=== PATIENT | female | born 1995 | race African-American/Black ===

== ENCOUNTER 2023-01-11 08:25 | Outpatient (CLI) | payer OTHER, SELFPAY ==
[2023-01-11 08:45] LABS: Basophils Absolute Auto 0.1 K/mm3 (0.0-0.1); Basophils Percent Auto 1.1 % (0.2-1.2); Eosinophils Absolute Auto 0.6 K/mm3 (0-0.3); Eosinophils Percent Auto 8.3 % (0-4.4); Hematocrit 42.1 % (37.0-47.0); Immature Granulocyte Absolute 0.02 K/mm3 (0.00-0.031); Immature Granulocyte Percent A 0.3 % (0-0.5); Lymphocytes Absolute Auto 2.61 K/mm3 (0.9-3.2); Lymphocytes Percent Auto 36.5 % (18.3-44.2); Mean Corpuscular HGB Conc 33.3 g/dl (32-36); Mean Corpuscular Hemoglobin 32.1 pg (26-34); Mean Corpuscular Volume 96.6 fl (80-100); Monocytes Absolute Auto 0.5 K/mm3 (0.1-0.6); Monocytes Percent Auto 6.7 % (2.6-8.5); Neutrophils Absolute Auto 3.4 K/mm3 (1.3-6.7); Neutrophils Percent Auto 47.1 % (45.5-73.1); Platelet Count Result 369 k/mm3 (150-375); Red Blood Count 4.36 M/mm3 (4.2-5.4); Red Cell Distribution Width 12.3 % (11.5-14.5); White Blood Count 7.2 K/mm3 (4.5-10.0)
[2023-01-11 09:44] LABS: Alanine Aminotransferase 24 U/L (6-35); Albumin Level 4.5 g/dL (3.5-5.1); Alkaline Phosphatase 113 U/L (38-126); Anion Gap 5 mmol/L (8-16); Aspartate Amino Transferase 34 U/L (14-36); Bilirubin,Total 0.4 mg/dL (0.2-1.3); Blood Urea Nitrogen 19 mg/dL (7-17); Calcium 9.2 mg/dL (8.4-10.2); Carbon Dioxide 29 mmol/L (22-30); Chloride 106 mmol/L (98-107); Estimated Glomerular Filt Rate > 60; Glucose 93 mg/dL (65-110); Potassium 4.2 mmol/L (3.4-5.0); Sodium 140 mmol/L (137-145)
[2023-01-11 09:58] LABS: Iron 46 ug/dL (37-170)
[2023-01-11 10:08] LABS: Percent Iron Saturation 11 % (20-50)
[2023-01-11 10:17] LABS: Free T4 Free Thyroxine 0.88 ng/mL (0.78-2.19)
== END 2023-01-11 08:26 | disposition home or self-care (01) ==
PROVIDERS: PCP Family Medicine; Visit Provider Family Medicine
DX: D50.9 Iron deficiency anemia, unspecified (principal); M54.2 Cervicalgia
CPT/HCPCS: 36415; 80053; 82728; 83540; 83550; 84439; 84443; 85025

== ENCOUNTER 2025-02-19 13:35 | Outpatient (CLI) | payer OTHER, SELFPAY ==
--- OUTSIDE RECORDS SUMMARY | 2025-02-19 13:37 | XMS_ITS | Encounter Summary ---
Author Organization [facility] Address [address] [place] [address] Phone Care Team Providers Care Operating Room Nurse Name Role Phone Cl Edmond MD Unavailable Hank Vallejo APRN REGISTERED NURSE MATERNAL CHILD Primary Care Provid er Reason for Referral * Consult, Test & Initiate Treatment (Routine) - Open Specialty Diagnoses / Procedures Referred By Loida vaca Referred To Contact Diagnoses Attention deficit Anxiety Hank Vallejo APRN, REGISTERED NURSE MATERNAL CHILD [address] [address] Phone: tel: fax: Referral ID Status Reason Start Date Expiration Date Visits Re quested Visits Authorized [id number] Open 02/18/2025 1 1 Scheduling Instructions Sindy is being referred to or other specialist in patient's insurance network for ADHD testing. See below for Sindy's current medications, allergies and problem list. CURRENT MEDS: Current Outpatient Medications: buPROPion (WELLBUTRIN) 150 MG XL tablet, Take 1 Tablet by mouth every morning., Disp: 90 Tablet, Rfl: 0 medroxyPROGESTERone (DEPO-PROVERA) 150 MG/ML Suspension, DIRECTED, Disp: , Rfl: Vit-Fe Fumarate-FA ( VITAMIN PO), Take 1 Tablet by mouth daily. (Patient not taking: Reported on 02/18/2025), Disp: , Rfl: valACYclovir (VALTREX) 1 GM Tablet, , Disp: , Rfl: No current facility-administered medications for this visit. ALLERGIES: -- Pollen Extract -- Itching, Runny Nose and Shortness of Breath PROBLEM LIST: Patient Active Problem List: Visit for annual health examination (Adult) Vitamin D deficiency Anxiety and depression * Consult, Test & Initiate Treatment (Routine) - Denied Specialty Diagnoses / Procedures Referred By Contcameron t Referred To Contact Behavioral Health Diagnoses Attention deficit Hank Vallejo APRN, CNP [address] [address] Phone: tel: fax: [facility] [address] [place] [address] Phone: tel: fax: Referral ID Status Reason Start Date Expiration Date Visits Re quested Visits Authorized [id number] Denied 02/18/2025 1 1 Scheduling Instructions Sindy is being referred for ADHD testing. Please contact patient for scheduling questions or concerns. Reason for Visit * Reason Comments Mental Health Problem Encounter Details Date Type Department Care Team ([facility] st Contact Info) Description 02/18/2025 7:45 AM CDT Office Visit [facility] - Family [facility] [address] [place] [address] Hank Vallejo APRN, JODI [address] [address] Attention deficit (Primary Dx); Anxiety; Vitamin D deficiency; Weight gain; Elevated TSH Discharge Disposition: Discharged to home or Selfcare Social History Tobacco Use Types Packs/Day Years Used Date Smoking Tobacco: Never Smokeless Tobacco: Never Alcohol Use Standard Drinks/Week Comments Yes 6 (1 standard drink = 0.6 oz pur e alcohol) [facility] Utilities Answer Date Recorded In the past 12 months has e electric, gas, oil, or water company threatened to shut off services in your home? No 04/10/2024 Social Connection and Isolation Panel [NHANES] A nswer Date Recorded In a typical week, how many times do you talk on the phone with family, friends, or neighbors? Twice a week 04/10/2024 How often do you get together with friends or re latives? Once a week 04/10/2024 How often do you attend episcopal or christian serv ices? Never 04/10/2024 Do you belong to any clubs o r organizations such as episcopal groups, unions, fraternal or athletic groups, or school groups? No 04/10/2024 How often do you attend meet ings of the clubs or organizations you belong to? Never 04/10/2024 Are you , , di vorced, , never , or living with a partner? Never 04/10/2024 AUDIT-C Answer Date Recorded Q1: How often do you have a drink containing alc ohol? 2-3 times a week 04/10/2024 Q2: How many drinks containi ng alcohol do you have on a typical day when you are drinking? 1 or 2 04/10/2024 Q3: How often do you have si x or more drinks on one occasion? Monthly 04/10/2024 Overall Financial Resource Strain (CARDIA) Answe r Date Recorded How hard is it for you to pa y for the very basics like food, housing, medical care, and heating? Not very hard 04/10/2024 PHQ-2 Answer Date Recorded Total Score - Questions 1-9 20 01/22 [facility] [place] [facility] Occupat ional Health - Occupational Stress Questionnaire Answer Date Recorded Do you feel stress - tense, restless, nervous, or anxious, or unable to sleep at night because your mind is troubled all the time - these days? Very much 04/10/2024 Exercise Vital Sign Answer Date Recorde d On average, how many days pe r week do you engage in moderate to strenuous exercise (like a brisk walk)? 7 days 04/10/2024 On average, how many minutes do you engage in exercise at this level? 60 min 04/10/2024 Hunger Vital Sign Answer Date Recorded Within the past 12 months, y ou worried that your food would run out before you got the money to buy more. Never true 04/10/20 24 Within the past 12 months, t he food you bought just didn't last and you didn't have money to get more. Never true 04/10/2024 PRAPARE - Transportation Answer Date Re corded In the past 12 months, has l ack of transportation kept you from medical appointments or from getting medications? No 03/23 In the past 12 months, has l ack of transportation kept you from meetings, work, or from getting things needed for daily living? No 04/10/2024 Housing Stability Vital Sign Answer Hong e Recorded In the last 12 months, was t here a time when you were not able to pay the mortgage or rent on time? No 04/10/2024 In the past 12 months, how m any times have you moved where you were living? 0 04/10/2024 At any time in the past 12 m [facility], were you homeless or living in a penitentiary (including now)? No 04/10/2024 Education Answer Date Recorded What is the highest level of school you have completed or the highest degree you have received? Some college, no degree 01/09/2023 Sexually Active Control Partners Comments Yes Comments No Sex and Gender Information Value Date Recorded Sex Assigned at Female 02/04/2024 2:10 PM CDT Legal Sex Female 7:58 PM CDT Gender Identity Female 02/04/2024 2:10 PM CDT Sexual Orientation Straight 02/04/2024 2: 10 PM CDT documented as of this encounter Last Filed Vital Signs Vital Sign Reading Time Taken Comments Blood Pressure 110/82 02/18/2025 7:46 AM CDT Pulse 103 02/18/2025 7:46 AM CDT Temperature 36.3 C (97.3 F) 02/18/2025 7:46 AM CDT Respiratory Rate 16 02/18/2025 7:46 AM CDT Oxygen Saturation 98% 02/18/2025 7:46 AM CDT Inhaled Oxygen Concentration - - Weight 88.9 kg (196 lb) 02/18/2025 7:46 AM CDT Height 165.1 cm (5' 5) 02/18/2025 7:46 AM CDT Body Mass Index 32.62 02/18/2025 7:46 AM CDT documented in this encounter Functional Status * Question Answer Date of Assessment Author Little interest or pleasure in doing things Nearly every day 02/18/2025 7:54 AM CDT Dottie Marcus MA Feeling down, depressed, or hopeless More than half the days 02/18/2025 7:54 AM CDT Dottie Marcus MA * Over the past 2 weeks, how often have you been bothered by any of the following problems? Question Answer Date of Assessment Author Patient Health Questionnaire -2 Score 5 02/18/2025 7:54 AM CDT Dottie Marcus MA documented as of this encounter Progress Notes * Dottie Marcus MA - 02/18/2025 7:45 AM CDT Sindy Carcamo Ofeliajose, 29 y.o., female is here for Mental Health Problem Medication Refills: Patient reports/denies need for medication refills. Orders Pended: no Requested Prescriptions No prescriptions requested or ordered in this encounter Home Medications Medication Sig Start Date End Date Taking? Authorizing Provider escitalopram (LEXAPRO) 10 MG Tablet Take 1 Tablet by mouth daily. Patient not taking: Reported on 02/18/2025 05/15/24 Hank Vallejo APRN, JODI medroxyPROGESTERone (DEPO-PROVERA) 150 MG/ML Suspension DIRECTED 01/03/23 Yes Margarita Knapp MD Vit-Fe Fumarate-FA ( VITAMIN PO) Take 1 Tablet by mouth daily. Patient not taking: Reported on 02/18/2025 ProviderMargarita MD valACYclovir (VALTREX) 1 GM Tablet 04/03/24 Yes Margarita Knapp MD There are no discontinued medications. I have reviewed the home medication list with the patient and have reconciled discrepancies. The list is accurate to the best of my knowledge. Smoking Status: Social History Tobacco Use Smoking status: Never Smokeless tobacco: Never Vaping Use Vaping status: Every Day Substances: Nicotine, Flavoring Devices: Disposable (every 2-3 weeks) Substance Use Topics Alcohol use: Yes Alcohol/week: 3.6 oz Types: 6 Glasses of wine per week Drug use: Not Currently Smoking Cessation Counseling Given: yes Health Care Maintenance: Health Maintenance Due Topic Date Due Human Papillomavirus (HPV) Immunization (3 - 3-dose series) 04/20/2010 Orders Pended: no The following BPA's have been addressed with the patient today: Depression ABUSE and ANXIETY PHQ-2 Little interest or pleasure in doing things: Nearly every day Feeling down, depressed, or hopeless: More than half the days Initial Score - If the score is 2 or higher, please proceed with the additional evaluation.: 5 PHQ-9 3. Trouble falling asleep or staying asleep or sleeping too much?: 3 - Nearly every day 4. Feeling tired or having little energy?: 3 - Nearly every day 5. Poor appetite or overeating?: 3 - Nearly every day 6. Feeling bad about yourself or that you are a failure or have let yourself or your family down?: 0 - Not at all 7. Trouble concentrating on things, such as reading the newspaper or watching television?: 3 - Nearly every day 8. Moving or speaking so slowly that other people could have noticed. Or the opposite - being so fidgety or restless that you have been moving around a lot more than usual?: 3 - Nearly every day 9. Thoughts that you would be better off or of hurting yourself in some way?: 0 - Not at all 10. If you checked off any problems, how difficult have these problems made it for you to do your work, take care of things at home or get along with other people?: Extremely difficult Total Score - Questions 1-9: 20 DEWAYNE Over the last 2 weeks, how often have you been bothered by the following problems? Feeling nervous, anxious, or on edge: Nearly every day Not being able to stop or control worrying: Nearly every day Worrying too much about different things: Nearly every day Trouble relaxing: Nearly every day Being so restless that it's hard to sit still: Nearly every day Becoming easily annoyed or irritable : Nearly every day Feeling afraid as if something awful might happen: Several days DEWAYNE - 7 Scale Total Score:: 19 If you checked off any problems, how difficult have these made it for you to do your work/school, take care of things at home, or get along with other people?: Extremely difficult * Hank Vallejo APRN, JODI - 02/18/2025 7:45 AM CDT [facility] [address] [facility] [address] Dept: [phone] Dept Loc: [phone] Loc Patient: Sindy Haney : 1995 Sex: female Subjective Subjective: History of Present Illness The patient is a 29-year-old female who presents today for follow-up for anxiety and depression andwith concerns of ADHD. Her anxiety score is 19 and PHQ is 21. She discontinued Lexapro in June 2024 due to perceived ineffectiveness. She reports experiencingracing thoughts, loss of control, concentration difficulties, insomnia, fatigue, hypersomnia, and persistent tiredness upon awakening. She describes her sleep as stress-induced, often waking up in a state of panic. She has been under significant stress for the past 2 weeks, attempting to balance her home life with her academic commitments. She is a single mother of 2 children and is currently enrolled in 3 online classes. She suspects she may have ADHD, a condition she believes has been present throughout her life but has never been formally diagnosed. She has taken an online test for ADHD, which suggested a positive result. She reports difficulty in completing projects once the challenging aspects are completed, organizing tasks, remembering appointments or obligations, initiating tasks that require significant thought, and maintaining attention during boring or repetitive work. She also reports fidgeting, restlessness, excessive activity, making careless mistakes during boring or difficult projects, difficulty concentrating on conversations, misplacing items, being easily distracted by noise or activity, leaving her seat during meetings, talking excessively in social situations, finishing others' sentences, difficulty waiting her turn, and interrupting others. Despite these challenges, she performed well academically during her school years. She has been experiencing swelling in her hands and ankles and has requested a cortisol level checkfrom her material damage adjuster. She has gained weight, currently weighing 196.4 pounds, up from her previousweight of 150 pounds during her . Her eating habits are inconsistent, with periods of overeating followed by periods of not eating at all. She has attempted to manage her weight through exercise and a fruit and water diet but has not seen any significant results. She occasionally craves salt and consumes pretzels or heavy salt to satisfy this craving. SOCIAL HISTORY She is a single mother of 2 children and is currently enrolled in 3 online classes. FAMILY HISTORY Her mother takes levothyroxine for thyroid issues. Past Medical History Positives Diagnosis Date Low iron stores Current Outpatient Medications on File Prior to Visit Medication Sig Dispense Refill medroxyPROGESTERone (DEPO-PROVERA) 150 MG/ML Suspension DIRECTED Vit-Fe Fumarate-FA ( VITAMIN PO) Take 1 Tablet by mouth daily. (Patient not taking: Reported on 02/18/2025) valACYclovir (VALTREX) 1 GM Tablet No current facility-administered medications on file prior to visit. Allergies Allergen Reactions Pollen Extract Itching, Runny Nose and Shortness of Breath Review of Systems Review of Systems Constitutional: Negative for activity change, appetite change, chills, fatigue and fever. Respiratory: Negative for cough, chest tightness, shortness of breath and wheezing. Cardiovascular: Negative for chest pain, palpitations and leg swelling. Gastrointestinal: Negative for constipation, diarrhea, nausea and vomiting. Musculoskeletal: Negative for arthralgias, back pain, joint swelling and myalgias. Skin: Negative for rash and wound. Neurological: Negative for dizziness, light-headedness and headaches. Psychiatric/Behavioral: Positive for agitation and decreased concentration. Negative for behavioralproblems, confusion, dysphoric mood, hallucinations, self-injury, sleep disturbance and suicidal ideas. The patient is nervous/anxious. The patient is not hyperactive. Objective Objective: Visit Vitals BP 110/82 (BP Location: Right Arm, BP Position: Sitting, BP Cuff Size: Regular) Pulse 103 Temp 97.3 ??F (36.3 ??C) (Temporal) Resp 16 Physical Exam Physical Exam Vitals and nursing note reviewed. Constitutional: General: She is not in acute distress. Appearance: Normal appearance. She is well-developed. She is not diaphoretic. HENT: Head: Normocephalic and atraumatic. Right Ear: External ear normal. Left Ear: External ear normal. Nose: Nose normal. Mouth/Throat: Mouth: Mucous membranes are moist. Pharynx: Oropharynx is clear. Eyes: Pupils: Pupils are equal, round, and reactive to light. Neck: Vascular: No carotid bruit. Trachea: No tracheal deviation. Cardiovascular: Rate and Rhythm: Normal rate and regular rhythm. Pulses: Normal pulses. Heart sounds: Normal heart sounds. No murmur heard. No friction rub. No gallop. Pulmonary: Effort: Pulmonary effort is normal. No respiratory distress. Breath sounds: Normal breath sounds. No stridor. No wheezing, rhonchi or rales. Musculoskeletal: General: No tenderness. Normal range of motion. Cervical back: Normal range of motion and neck supple. No tenderness. Lymphadenopathy: Cervical: No cervical adenopathy. Skin: General: Skin is dry. Capillary Refill: Capillary refill takes less than 2 seconds. Neurological: General: No focal deficit present. Mental Status: She is alert and oriented to person, place, and time. Mental status is at baseline. Psychiatric: Attention and Perception: Attention and perception normal. Mood and Affect: Affect normal. Mood is anxious. Speech: Speech normal. Behavior: Behavior normal. Behavior is cooperative. Thought Content: Thought content normal. Cognition and Memory: Cognition and memory normal. Judgment: Judgment normal. PHQ-2 Little interest or pleasure in doing things: Nearly every day Feeling down, depressed, or hopeless: More than half the days Initial Score - If the score is 2 or higher, please proceed with the additional evaluation.: 5 PHQ-9 3. Trouble falling asleep or staying asleep or sleeping too much?: 3 - Nearly every day 4. Feeling tired or having little energy?: 3 - Nearly every day 5. Poor appetite or overeating?: 3 - Nearly every day 6. Feeling bad about yourself or that you are a failure or have let yourself or your family down?: 0 - Not at all 7. Trouble concentrating on things, such as reading the newspaper or watching television?: 3 - Nearly every day 8. Moving or speaking so slowly that other people could have noticed. Or the opposite - being so fidgety or restless that you have been moving around a lot more than usual?: 3 - Nearly every day 9. Thoughts that you would be better off or of hurting yourself in some way?: 0 - Not at all 10. If you checked off any problems, how difficult have these problems made it for you to do your work, take care of things at home or get along with other people?: Extremely difficult Total Score - Questions 1-9: 20 DEWAYNE Over the last 2 weeks, how often have you been bothered by the following problems? Feeling nervous, anxious, or on edge: Nearly every day Not being able to stop or control worrying: Nearly every day Worrying too much about different things: Nearly every day Trouble relaxing: Nearly every day Being so restless that it's hard to sit still: Nearly every day Becoming easily annoyed or irritable : Nearly every day Feeling afraid as if something awful might happen: Several days DEWAYNE - 7 Scale Total Score:: 19 If you checked off any problems, how difficult have these made it for you to do your work/school, take care of things at home, or get along with other people?: Extremely difficult Medical Decision Making: Assessment & Plan Diagnoses and all orders for this visit: Attention deficit - buPROPion (WELLBUTRIN) 150 MG XL tablet; Take 1 Tablet by mouth every morning. - [facility]: PSYCHOLOGY- THERAPY/CBT; Future Anxiety - buPROPion (WELLBUTRIN) 150 MG XL tablet; Take 1 Tablet by mouth every morning. Vitamin D deficiency - VITAMIN D, 25 HYDROXY TOTAL; Future Weight gain - CMP (COMPREHENSIVE METABOLIC PANEL); Future - COMPLETE BLOOD COUNT (CBC) WITH DIFF; Future - THYROID STIMULATING HORMONE (TSH); Future - VITAMIN B12; Future - IRON,TRANSFERN,CALC.TIBC,%SAT; Future Assessment & Plan 1. Anxiety. Her anxiety score is 19. She reports feeling very stressed and overwhelmed due to her current life circumstances, including being a single mom and managing schoolwork. She stopped taking Lexapro in June 2024 as it was not effective. Wellbutrin will be initiated to help manage her anxiety while awaiting further testing for ADHD. Potential side effects, including fatigue, nausea, and a possible unusual taste in the mouth, were discussed. If she experiences worsening depression or suicidal ideation, she should notify the clinic immediately. 2. Depression. Her PHQ score is 21. Although she reports less depression compared to anxiety, there is still a need to monitor her mental health closely. The potential for depression to increase due to untreated ADHD was discussed. Wellbutrin will also help manage depressive symptoms. 3. Suspected ADHD. She reports symptoms consistent with ADHD, including difficulty concentrating, organizing tasks, and remembering appointments. A referral to a psychologist for comprehensive ADHD testing will be made. Wellbutrin will be initiated to help manage symptoms of ADHD, including attention issues and restlessness, while awaiting further testing. 4. Weight gain. She has gained weight, currently weighing 196.4 pounds, up from her previous weight of 150 pounds during her . Her eating habits are inconsistent, with periods of overeating followed by periods of not eating at all. She has attempted to manage her weight through exercise and a fruit and water diet but has not seen any significant results. She occasionally craves salt and consumes pretzels or heavy salt to satisfy this craving. Laboratory tests will be ordered to assess her overall health status, including a recheck of her vitamin D levels. Follow up for medication discussion after ADHD testing Time spent in open communication and establishing rapport with the patient was essential for effectively conveying assessment and plan, optimizing health outcomes, and fostering a trusting long-term provider-patient relationship. documented in this encounter Miscellaneous Notes * Addendum Note - Hank Vallejo APRN, CNP - 02/18/2025 7:45 AM CDTAddended by: HANK VALLEJO on: 02/18/2025 04:22 PM Modules accepted: Orders * Addendum Note - Hank Vallejo APRN, CNP - 02/18/2025 7:45 AM CDTAddended by: HANK VALLEJO on: 02/18/2025 05:04 PM Modules accepted: Orders documented in this encounter Plan of Treatment Scheduled Orders Name Type Priority Associated Diagnoses Orde r Schedule THYROXINE (T4) FREE Lab Routine Elevated TSH Expected: 02/18/2025, Expires: 08/17/2025 TRIIODOTHYRININE (T3) FREE Lab Routine Elevated TSH Expected: 02/18/2025, Expires: 03/24/2025 Scheduled Referrals Name Type Priority Associated Diagnoses Order Schedule [facility]: PSYCHOLOGY- THERAPY/CBT Outpatient Referral Routine Attention deficit Expected: 02/18/2025, Expires: 05/21/2025 EXTERNAL PSYCHIATRY REFERRAL Outpatient Referral Routine Attention deficit Anxiety Expected: 02/18/2025, Expires: 02/18/2026 documented as of this encounter Results * IRON,TRANSFERN,CALC.TIBC,%SAT (02/18/2025 8:21 AM CDT) IRON 89 25 - 156 mcg/dL 02/18/2025 1:11 PM CDT [facility] TRANSFERRIN 267 180 - 382 mg/dL 02/18/2025 1:11 PM CDT [facility] TIBC, CALCULATED 334 265 - 497 mcg/dL 02/18/2025 1:11 PM CDT [facility] % SATURATION * 27 15 - 62 % 02/18/2025 1:11 PM CDT [facility] Blood Venipuncture / Unknown 02/18/2025 8:21 AM CDT 02/18/2025 8:21 AM CDT us Hank Vallejo ROUNDSMAN, REGISTERED NURSE MATERNAL CHILD CHEMISTRY ORDERABLES Final Result [facility] [address] [place] [address] * VITAMIN D, 25 HYDROXY TOTAL (02/18/2025 8:21 AM CDT) VITAMIN D, 25 HYDROX 13.1 ng/mL 02/18/2025 1:34 PM CDT [facility] Blood Venipuncture / Unknown 02/18/2025 8:21 AM CDT 02/18/2025 8:21 AM CDT Narrative [facility] - 02/18/2025 1:34 PM CDT Published reference ranges for Vitamin D vary depending on time and place and method of testing, and on patient's age, sex, ethnicity and levels of other measured analytes such as parathormone, calcium and phosphorus. The result should be evaluated in conjunction with clinical findings and suspicions. [place] [facility] [employer] [facility] Clinical Practice Guidelines: Status Vitamin D levels (ng/mL) Deficient <=20 At risk of inadequacy 21-29 Sufficient 30-100 Centers of Disease Control and Prevention Guidelines: Status Vitamin D levels (ng/mL) Deficient <13 At risk of inadequacy 13-19 Sufficient 20-50 Possibly harmful >50 References: [place] [employer], 2010 Dietary reference intakes for calcium and vitamin D. [place]: The National Academies Press. Gordo M, Mitzy N, Barrett BAEZ, et al., Evaluation, treatment, and prevention of Vitamin D deficiency: an Endocrinology Clinical Practice Guideline. JCEM 2011 96: 7 2402-6628. Karla A, Saravanan C, Ifrah D, et al., Vitamin D Status: [place], [id number], [facility] data brief, no. 59, MD Jt: National Center for Health Statistics. 2011. us Hank Vallejo APRN, REGISTERED NURSE MATERNAL CHILD CHEMISTRY ORDERABLES Final Result [facility] [address] [place] [address] * VITAMIN B12 (02/18/2025 8:21 AM CDT) VITAMIN B12 762 213 - 816 pg/mL 02/18/2025 1:34 PM CDT [facility] Blood Venipuncture / Unknown 02/18/2025 8:21 AM CDT 02/18/2025 8:21 AM CDT us Hank Vallejo ROUNDSMAN, REGISTERED NURSE MATERNAL CHILD CHEMISTRY ORDERABLES Final Result Performing Organization Address City/[facility]/ZIP Co de Phone Number [facility] [place] [address] * (ABNORMAL) THYROID STIMULATING HORMONE (TSH) (02/18/2025 8:21 AM CDT) Pathologist [facility] TSH 11.475(H) 0.300 - 5.000 mIU/L 02/18/2025 1:36 PM CDT [facility] Blood Venipuncture / Unknown 02/18/2025 8:21 AM CDT 02/18/2025 8:21 AM CDT us Hank Vallejo ROUNDSMAN, JODI CHEMISTRY ORDERABLES Final Result [facility] [place] [address] * (ABNORMAL) CMP (COMPREHENSIVE METABOLIC PANEL) (02/18/2025 8:21 AM CDT) [facility] SODIUM 139 136 - 145 mmol/L 02/18/2025 1:11 PM CDT [facility] POTASSIUM 4.1 3.5 - 5.1 mmol/L 02/18/2025 1:11 PM CDT [facility] CHLORIDE 108(H) 98 - 107 mmol/L 02/18/2025 1:11 PM CDT [facility] CO2, VENOUS 25 22 - 30 mmol/L 02/18/2025 1:11 PM CDT [facility] ANION GAP 10.1 <18.0 mmol/L 02/18/2025 1:11 PM CDT [facility] GLUCOSE 88 70 - 99 mg/dL 02/18/2025 1:11 PM CDT [facility] BUN 12 5 - 18 mg/dL 02/18/2025 1:11 PM CDT [facility] CREATININE, BLOOD 1.32(H) 0.60 - 1.00 mg/dL 02/18/2025 1:11 PM CDT [facility] BUN/CREATININE RATIO 9(L) 12 - 20 ratio 02/18/2025 1:11 PM CDT [facility] TOTAL PROTEIN 6.6 6.0 - 8.0 g/dL 02/18/2025 1:11 PM T [facility] ALBUMIN 3.7 3.5 - 5.0 g/dL 02/18/2025 1:11 PM [facility] A/G RATIO 1.3 1.0 - 2.2 02/18/2025 1:11 PM T [facility] CALCIUM 8.8 8.7 - 10.5 mg/dL 02/18/2025 1:11 PM T [facility] T BILI 0.4 0.2 - 1.2 mg/dL 02/18/2025 1:11 PM T [facility] SGOT (AST) 29 <43 U/L 02/18/2025 1:11 PM [facility] SGPT (ALT) 26 <56 U/L 02/18/2025 1:11 PM [facility] ALKALINE PHOSPHATASE 72 40 - 150 U/L 02/18/2025 1:11 PM [facility] IS THE PATIENT REQUIRED TO BE FASTING? No 02/18/2025 1:11 PM [facility] GFR, ESTIMATED 55(L) >=60 02/18/2025 1:11 PM [facility] Comment: Creatinine Clearance is the preferred criteria for selecting drug dose adjustments in renally impaired patients. The GFR is provided as additional pertinent clinical information. GFR is reported in mL/min/1.73 sq m. Calculation based on the Chronic Kidney Disease Epidemiology Collaboration (CKD- EPI) equation refit without adjustment for race. GFR, EST. 57(L) >=60 02/18/ 025 1:11 PM [facility] GFR, EST. NONAFRICAN 47(L) >=60 02/18/2025 1:11 PM [facility] Blood Venipuncture / Unknown 02/18/2025 8:21 AM CDT 02/18/2025 8:21 AM CDT Hank Vallejo APRN, CNP CHEMISTRY ORDERABLES Final Result [facility] [address] [place] [address] documented in this encounter Visit Diagnoses Diagnosis Attention deficit- Primary Attention or concentration deficit Anxiety Anxiety state, unspecified Vitamin D deficiency Unspecified vitamin D deficiency Weight gain Abnormal weight gain Elevated TSH Other abnormal blood chemistry documented in this encounter Additional Health Concerns Assessment Noted Time PHQ-9 Depression Total Score: 20 025 7:54 AM CDT documented as of this encounter Care Teams Operating Room Nurse Relationship Specialty Start Date End Date Hank Vallejo APRN, CNP #2 [facility] [address] [place] [address] PCP - General Advanced Practice Nurse 04/10/24 Cl Edmond MD #2 [facility] [address] [place] [address] Consulting Physician General Surgery 10/23/21 documented as of this encounter
--- OUTSIDE RECORDS SUMMARY | 2025-02-19 13:37 | XMS_ITS | Clinical Summary ---
Author Organization [facility] Address [address] [place] [address] Care Team Providers Care Plant Chief Name Role Phone Radha Vallejo NP Primary Care Provider + Allergies No known active allergies Medications cyclobenzaprine (FLEXERIL) 10 mg tabletIndicatio ns:Muscle Spasm Take 1 tablet (10 mg total) by mouth 3 (three) times a day as needed for muscle spasms 15 tablet 0 Active Additional Information Patient not taking.Reported on 02/08/2025 lidocaine viscous (XYLOCAINE) 2 % solutionIndicat ions:Sore throat Apply 10 mL to the mouth or throat every 6 (six) hours as needed (sore throat) May mix with 30 ml of Mylanta 100 mL 5 Active Active Problems No known active problems Encounters Date Type Department Care Team Description 02/10/2025 Results Follow-Up [facility] at [address] [address] Heather Garcia, [place] Throat culture Throat 02/08/2025 7:15 PM CDT - 02/08/2025 11:59 PM CDT Hospital Encounter [address] [address] Sore throat Discharge Disposition: Discharge to home or self care 02/08/2025 4:30 PM CDT Office Visit [facility] at [address] [address] Heather Garcia, [place] Sore throat (Primary Dx) from Last 3 Months Immunizations Immunization Administration Dates Next Due MMR 09/05/2019(Deferred: Contraindic ation) Tdap 09/03/2019 Family History Medical History Relation Name Comments Epilepsy Mother Epilepsy; Relation Name Status Comments Mother Social History Tobacco Use Types Packs/Day Years Used Date Smoking Tobacco: Never Smokeless Tobacco: Never Alcohol Use Standard Drinks/Week Comments Never 0 (1 standard drink = 0.6 oz pur e alcohol) AUDIT-C Answer Date Recorded Frequency of Alcohol Consumption Never 09/03/2019 Average Number of Drinks Not on file 019 Frequency of Binge Drinking Not on file 08/23 Comments No Sex and Gender Information Value Date Recorded Sex Assigned at Not on file Legal Sex Female 7:14 PM [employer] Gender Identity Not on file Sexual Orientation Not on file Obstetrics History Para Term AB IAB SAB Ectopic Multiple Livin g Live Births 2 2 1 0 1 2 Date Outcome GA Total Labor Labor/2nd/3rd Weight Sex Type Anes PTL Amita A1 A5 Name Clin Para 2018 Term 39w 6d 5h 16m 3h 45m/1h 20m/0h 11m 3.585 kg (7 lb 14.5 oz) F Vag-S pont Epidur al N Livin g 7 8 MARTA N,GIR LCHRI KAIN Ball , Oral Quintana MD Complications:None Delivery Location:This [facility] ([facility]) Last Filed Vital Signs Vital Sign Reading Time Taken Comments Blood Pressure 136/90 02/08/2025 4:45 PM CDT Pulse 84 02/08/2025 4:45 PM CDT Temperature 36.9 C (98.4 F) 02/08/2025 4:45 PM CDT Respiratory Rate 16 02/08/2025 4:45 PM CDT Oxygen Saturation 98% 02/08/2025 4:45 PM CDT Inhaled Oxygen Concentration - - Weight 88 kg (194 lb) 02/08/2025 4:45 PM CDT Height 165.1 cm (5' 5) 11/22/2019 1:04 PM [employer] Body Mass Index 32.28 11/22/2019 1:04 PM [employer] Plan of Treatment Health Maintenance Due Date Last Done Comments Cervical Cancer Screening 1993 Depression Screening 1993 Hepatitis C Screening 1993 HPV Vaccines (3 - 3-dose series) 04/20/2010 01/26/2010, 01/31/2009 Regular Well Visit/Exam 18-64 2011 Covid-19 Vaccine ( season) 2024 08/21/2022 Influenza Vaccine (Season Ended) 2025 06/21/2023, 08/21/2022, 07/01/2019, Additional history exists DTaP/Tdap/Td Vaccine (7 - Td or Tdap) 09/03/2029 09/03/2019, 09/03/2018, 09/05/2014, Additional history exists Hepatitis B Screening Completed 06/04/2005 , 1993, 1993 Varicella Vaccines Completed 08/30/2005, 06/04/2005 Pneumococcal vaccine <65 Aged Out No longer eligible based on patient's age to complete this topic Procedures Procedure Name Priority Date/Time Associated Diagnosis Comments THROAT CULTURE Routine 02/08/2025 5:28 PM CDT Sore throat POC INFLUENZA A/B, COVID-19 ANTIGEN Routine 02/08/2025 5:07 PM CDT Sore throat POCT RAPID STREP Routine 02/08/2025 5:07 PM CDT Sore throat from Last 3 Months Results * Throat culture Throat (02/08/2025 5:28 PM CDT) Report Final Report: No growth of pathogens. Comment:Testing performed by : [facility], [address] [place]., [address] Throat 02/08/2025 5:28 PM CDT 02/09/2025 5:58 AM CDT Narrative O[facility] GARCIA - 02/10/2025 4:14 AM CDT Testing performed by [facility] ([phone]). us Heather Garcia NP LAB MICROBIOLOGY - GENERAL ORDERABLES Final Result [facility] [id number] Department [place] [address] * POC Influenza A/B, COVID-19 antigen (02/08/2025 5:07 PM CDT) Influenza A Ag, POC Negative Negative [facility] Influenza B Ag, POC Negative Negative [facility] COVID-19 Ag POC Presumptive Negative Presumptive Negative, Invalid [facility] Nasal 02/08/2025 5:07 PM CDT Heather Garcia HELICOPTER OFFICER POINT OF CARE TEST ORDERAB LES Final Result Performing Organization Address City/State/[facility] Co de Phone Number [facility] [place] [facility] [place] [address], [facility] * POCT rapid strep A (02/08/2025 5:07 PM CDT) Rapid Strep A, POC Negative Negative Swab 02/08/2025 5:07 PM CDT Heather Garcia HELICOPTER OFFICER POINT OF CARE TEST ORDERAB LES Final Result from Last 3 Months Insurance [facility] Advance Directives For more information, please contact: [phone] * Full Code (Latest Code Status on File) Date Activated Date Inactivated Comments 09/03/2019 6:40 PM 09/05/2019 7:53 PM * Full Code Date Activated Date Inactivated Comments 09/03/2019 11:42 AM 09/03/2019 6:40 PM Full CPR in case of cardiopulmonary arrest Care Teams Plant Chief Relationship Specialty Start Date End Date Radha Vallejo NP [address] [address] PCP - General Nurse Practitioner 02/08/25
--- OUTSIDE RECORDS SUMMARY | 2025-02-19 13:37 | XMS_ITS | Encounter Summary ---
Author Organization [facility] Address [address] [place] [address] Phone Care Team Providers Care Poultry Offal Worker Name Role Phone Luc Hill MD Primary Care Provider Cl Edmond MD Unavailable Radha Vallejo APRN, CNP Primary Care Provid er Reason for Visit * Reason Comments Medication Refill Encounter Details Date Type Department Care Team (Late st Contact Info) Description 02/28/2022 Refill [facility] - Family Medicine [facility] [address] [place] [phone] Luc Hill MD #1 [place] [address] Medication Refill Social History Tobacco Use Types Packs/Day Years Used Date Smoking Tobacco: Former Smokeless Tobacco: Former Alcohol Use Standard Drinks/Week Comments Not Currently 0 (1 standard drink = 0.6 oz pur e alcohol) PHQ-2 Answer Date Recorded Total Score - Questions 1-9 0 09/24 Sexually Active Control Partners Comments Yes Comments No Sex and Gender Information Value Date Recorded Sex Assigned at Female 02/04/2024 2:10 PM CDT Legal Sex Female 7:58 PM CDT Gender Identity Female 02/04/2024 2:10 PM CDT Sexual Orientation Straight 02/04/2024 2: 10 PM CDT COVID-19 Exposure Response Date Recorded In the last 10 days, have yo u been in contact with someone who was confirmed or suspected to have Coronavirus/COVID-19? No / Unsure 02/23/2022 1:41 PM CDT documented as of this encounter Miscellaneous Notes * Telephone Encounter - Shania Grimm RN - 02/28/2022 11:30 AM CDT 1 tab daily for 5 days = 5 tabs 1 tab monthly for 6 months = 6 tabs Total of last Rx 11 tabs documented in this encounter Plan of Treatment Not on file documented as of this encounter Visit Diagnoses Not on filedocumented in this encounter Additional Health Concerns Assessment Noted Time PHQ-9 Depression Total Score: 0 04/21/20 19 9:00 AM CDT documented as of this encounter Care Teams Poultry Offal Worker Relationship Specialty Start Date End Date Luc Hill MD PCP - General Family Medicine 04/21/19 04/09/24 Radha Vallejo APRN, CNP #2 [facility] [address] [place] [address] PCP - General Advanced Practice Nurse 04/10/24 Cl Edmond MD #2 [facility] [address] [place] [address] Consulting Physician General Surgery 10/23/21 documented as of this encounter
--- OUTSIDE RECORDS SUMMARY | 2025-02-19 13:37 | XMS_ITS | Encounter Summary ---
Author Organization [facility] Address [address] [place] [address] Phone Care Team Providers Care Elevator Technician Name Role Phone Cl Edmond MD Unavailable Radha Vallejo APRN STATEMENT SERVICES REPRESENTATIVE Primary Care Provid er Encounter Details Date Type Department Care Team (Late st Contact Info) Description 02/18/2025 8:30 AM CDT Lab [facility] [address] [facility] [place] [address] Brittney [facility] Lab/Ancillary Weight gain; Vitamin D deficiency Discharge Disposition: Discharged to home or Selfcare Social History Tobacco Use Types Packs/Day Years Used Date Smoking Tobacco: Never Smokeless Tobacco: Never Alcohol Use Standard Drinks/Week Comments Yes 6 (1 standard drink = 0.6 oz pur e alcohol) [facility] Utilities Answer Date Recorded In the past 12 months has [employer] gas, oil, or water [employer] threatened to shut off services in your home? No 04/10/2024 Social Connection and Isolation Panel [NHANES] A nswer Date Recorded In a typical week, how many times do you talk on the phone with family, friends, or neighbors? Twice a week 04/10/2024 How often do you get together with friends or re latives? Once a week 04/10/2024 How often do you attend sikhism or amish serv ices? Never 04/10/2024 Do you belong to any clubs o r organizations such as sikhism groups, unions, fraternal or athletic groups, or [...] Total Score - Questions 1-9 20 01/22 [facility] - Occupational Stress [...] any time in the past 12 m [facility], were you homeless or living in a residential (including now)? No 04/10/2024 Education Answer Date [...] PM CDT documented as of this encounter Functional Status * Question Answer [...] as of this encounter Progress Notes * Valerie Ratliff CMA - 02/18/2025 8:30 AM CDT Vielka presents for lab draw per order of Radha Vallejo on 02/18/25. Specimen collected fromright antecubital without incident. [facility] documented in this encounter Plan of Treatment Not on file documented as of this encounter Procedures Procedure Name Priority Date/Time Associated Diagnosis Comments VITAMIN D, 25 HYDROXY TOTAL Routine 02/18/2025 8:21 AM CDT Vitamin D deficiency IRON,TRANSFERN,CALC.T IBC,%SAT Routine 02/18/2025 8:21 AM CDT Weight gain CBC WITH AUTO DIFFERENTIAL Routine 02/18/2025 8:21 AM CDT Weight gain VITAMIN B12 Routine 02/18/2025 8:21 AM CDT Weight gain THYROID STIMULATING HORMONE (TSH) Routine 02/18/2025 8:21 AM CDT Weight gain CMP (COMPREHENSIVE METABOLIC PANEL) Routine 02/18/2025 8:21 AM CDT Weight gain COMPLETE BLOOD COUNT (CBC) WITH DIFF Routine 02/18/2025 8:21 AM CDT Weight gain documented in this encounter Results * (ABNORMAL) CBC WITH AUTO DIFFERENTIAL (02/18/2025 8:21 AM CDT) Pathologist [facility] WBC 8.91 4.00 - 12.00 10(3)/mcL 02/18/2025 12:14 PM CDT [facility] RBC 4.73 3.80 - 5.30 10(6)/mcL 02/18/2025 12:14 PM CDT [facility] HEMOGLOBIN (HGB) 14.9 12.0 - 15.8 g/dL 02/18/2025 12:14 PM CDT [facility] HEMATOCRIT (HCT) 45.6 36.0 - 47.0 % 02/18/2025 12:14 PM CDT [facility] MCV 96.4(H) 82.0 - 96.0 fL 02/18/2025 12:14 PM CDT [facility] MCH 31.5 26.0 - 34.0 pg 02/18/2025 12:14 PM CDT [facility] MCHC 32.7 31.0 - 36.0 g/dL 02/18/2025 12:14 PM CDT [facility] PLATELET COUNT 444(H) 140 - 440 10(3)/[facility] 02/18/2025 12:14 PM CDT [facility] RDW 13.3 11.8 - 15.5 % 02/18/2025 12:14 PM CDT [facility] MPV 9.8 9.7 - 12.4 fL 02/18/2025 12:14 PM CDT [facility] NEUTROPHILS 49.8 47.0 - 73.0 % 02/18/2025 12:14 PM CDT [facility] LYMPHOCYTES 37.8 18.0 - 42.0 % 02/18/2025 12:14 PM CDT [facility] MONOCYTES 6.4 4.0 - 12.0 % 02/18/2025 12:14 PM [facility] EOSINOPHILS 5.2(H) 0.0 - 5.0 % 02/18/2025 12:14 PM CDT [facility] BASOPHILS 0.8 0.0 - 1.0 % 02/18/2025 12:14 PM CDT [facility] ABSOLUTE NEUTROPHILS 4.44 1.60 - 7.70 10(3)/[facility] 02/18/2025 12:14 PM [facility] ABSOLUTE LYMPHOCYTES 3.37(H) 1.30 - 3.20 10(3)/[facility] 02/18/2025 12:14 PM [facility] ABSOLUTE MONOCYTES 0.57 0.20 - 1.00 10(3)/[facility] 02/18/2025 12:14 PM CDT [facility] ABSOLUTE EOSINOPHIL 0.46(H) 0.00 - 0.40 10(3)/[facility] 02/18/2025 12:14 PM CDT [facility] ABSOLUTE BASOPHILS 0.07 0.00 - 0.10 10(3)/[facility] 02/18/2025 12:14 PM [facility] NRBC PER 100 WBC 0 02/19/20 12:14 PM T [facility] Blood Venipuncture / Unknown 02/18/2025 8:21 AM CDT 02/18/2025 8:21 AM CDT us Radha Vallejo APRN, CNP HEMATOLOGY ORDERABLE S Final Result [facility] #[address] [place] [address] * IRON,TRANSFERN,CALC.TIBC,%SAT (02/18/2025 8:21 AM CDT) IRON 89 25 - 156 mcg/dL 02/18/2025 1:11 PM CDT [facility] TRANSFERRIN 267 180 - 382 mg/dL 02/18/2025 1:11 PM CDT [facility] TIBC, CALCULATED 334 265 - 497 mcg/dL 02/18/2025 1:11 PM CDT [facility] % SATURATION * 27 15 - 62 % 02/18/2025 1:11 PM CDT [facility] Blood Venipuncture / Unknown 02/18/2025 8:21 AM CDT 02/18/2025 8:21 AM CDT us Radha Vallejo APRN, CNP CHEMISTRY ORDERABLES Final Result [facility] [address] [place] [address] * VITAMIN D, 25 HYDROXY TOTAL (02/18/2025 8:21 AM CDT) VITAMIN D, 25 HYDROX 13.1 ng/mL 02/18/2025 1:34 PM CDT [facility] Blood Venipuncture / Unknown 02/18/2025 8:21 AM CDT 02/18/2025 8:21 AM CDT Narrative [facility] - 02/18/2025 1:34 PM CDT Published reference ranges for Vitamin D vary depending on time and place and method of testing, and on patient's age, sex, ethnicity and levels of other measured analytes such as parathormone, calcium and phosphorus. The result should be evaluated in conjunction with clinical findings and suspicions. [place] [employer] and [employer]ocrine Clinical Practice Guidelines: Status Vitamin D levels (ng/mL) Deficient <=20 At risk of inadequacy 21-29 Sufficient 30-100 Centers of Disease Control and Prevention Guidelines: Status Vitamin D levels (ng/mL) Deficient <13 At risk of inadequacy 13-19 Sufficient 20-50 Possibly harmful >50 References: [place] [employer], 2010 Dietary reference intakes for calcium and vitamin D. [place]: The National Academies Press. Gordo M, Mitzy N, Barrett BAEZ, et al., Evaluation, treatment, and prevention of Vitamin D deficiency: an Endocrinology Clinical Practice Guideline. JCEM 2011 96: 7 2230-3738. Karla A, Saravanan C, Ifrah D, et al., Vitamin D Status: [place], 1044-9108, [facility] data brief, no. 59, MD Jt: National Center for Health Statistics. 2011. Radha Vallejo PRIEST, STATEMENT SERVICES REPRESENTATIVE CHEMISTRY ORDERABLES Final Result [facility] [address] [place] [address] * VITAMIN B12 (02/18/2025 8:21 AM CDT) VITAMIN B12 762 213 - 816 pg/mL 02/18/2025 1:34 PM CDT [facility] Blood Venipuncture / Unknown 02/18/2025 8:21 AM CDT 02/18/2025 8:21 AM CDT Radha Vallejo PRIEST, STATEMENT SERVICES REPRESENTATIVE CHEMISTRY ORDERABLES Final Result [facility] [address] [place] [address] * (ABNORMAL) THYROID STIMULATING HORMONE (TSH) (02/18/2025 8:21 AM CDT) TSH 11.475(H) 0.300 - 5.000 mIU/L 02/18/2025 1:36 PM CDT [facility] Blood Venipuncture / Unknown 02/18/2025 8:21 AM CDT 02/18/2025 8:21 AM CDT us Radha Vallejo PRIEST, STATEMENT SERVICES REPRESENTATIVE CHEMISTRY ORDERABLES Final Result [facility] [address] [place] [address] * (ABNORMAL) CMP (COMPREHENSIVE METABOLIC PANEL) (02/18/2025 8:21 AM CDT) SODIUM 139 136 - 145 mmol/L 02/18/2025 1:11 PM CDT [facility] POTASSIUM 4.1 3.5 - 5.1 mmol/L 02/18/2025 1:11 PM CDT [facility] CHLORIDE 108(H) 98 - 107 mmol/L 02/18/2025 1:11 PM CDT [facility] CO2, VENOUS 25 22 - 30 mmol/L 02/18/2025 1:11 PM CDT [facility] ANION GAP 10.1 <18.0 mmol/L 02/18/2025 1:11 PM CDT [facility] GLUCOSE 88 70 - 99 mg/dL 02/18/2025 1:11 PM CDT [facility] BUN 12 5 - 18 mg/dL 02/18/2025 1:11 PM CDT [facility] CREATININE, BLOOD 1.32(H) 0.60 - 1.00 mg/dL 02/18/2025 1:11 PM CDT [facility] BUN/CREATININE RATIO 9(L) 12 - 20 ratio 02/18/2025 1:11 PM CDT [facility] TOTAL PROTEIN 6.6 6.0 - 8.0 g/dL 02/18/2025 1:11 PM CDT [facility] ALBUMIN 3.7 3.5 - 5.0 g/dL 02/18/2025 1:11 PM CDT [facility] A/G RATIO 1.3 1.0 - 2.2 02/18/2025 1:11 PM CDT [facility] CALCIUM 8.8 8.7 - 10.5 mg/dL 02/18/2025 1:11 PM CDT [facility] T BILI 0.4 0.2 - 1.2 mg/dL 02/18/2025 1:11 PM CDT [facility] SGOT (AST) 29 <43 U/L 02/18/2025 1:11 PM CDT [facility] SGPT (ALT) 26 <56 U/L 02/18/2025 1:11 PM CDT [facility] ALKALINE PHOSPHATASE 72 40 - 150 U/L 02/18/2025 1:11 PM CDT [facility] IS THE PATIENT REQUIRED TO BE FASTING? No 02/18/2025 1:11 PM CDT [facility] GFR, ESTIMATED 55(L) >=60 02/18/2025 1:11 PM CDT [facility] Comment: Creatinine Clearance is the preferred criteria for selecting drug dose adjustments in renally impaired patients. The GFR is provided as additional pertinent clinical information. GFR is reported in mL/min/1.73 sq m. Calculation based on the Chronic Kidney Disease Epidemiology Collaboration (CKD- EPI) equation refit without adjustment for race. GFR, EST. 57(L) >=60 025 1:11 PM CDT [facility] GFR, EST. NONAFRICAN 47(L) >=60 02/18/2025 1:11 PM T [facility] Blood Venipuncture / Unknown 02/18/2025 8:21 AM CDT 02/18/2025 8:21 AM CDT us Radha Vallejo APRN, CNP CHEMISTRY ORDERABLES Final Result [facility] [address] [place] [address] documented in this encounter Visit Diagnoses Diagnosis Weight gain Abnormal weight gain Vitamin D deficiency Unspecified vitamin D deficiency documented in this encounter Additional Health Concerns Assessment Noted Time PHQ-9 Depression Total Score: 20 025 7:54 AM CDT documented as of this encounter Care Teams Elevator Technician Relationship Specialty Start Date End Date Radha Vallejo APRN, CNP #[address] [facility] [address] [place] [phone] PCP - General Advanced Practice Nurse 04/10/24 Cl Edmond MD #[address] [facility] [address] [place] [phone] Consulting Physician General Surgery 10/23/21 documented as of this encounter
--- OUTSIDE RECORDS SUMMARY | 2025-02-19 13:38 | XMS_ITS | Referral Summary ---
Author Organization [facility] Address [address] [place] [address] Care Team Providers Care Assistant Buyer Name Role Phone Radha Vallejo NP Primary Care Provider + Encounters Date Type Department Care Team Description 02/10/2025 Results Follow-Up [facility] at [address] [address] Heather Garcia NP Throat culture Throat 02/08/2025 7:15 PM CDT - 02/08/2025 11:59 PM CDT Hospital Encounter [address] [address] Sore throat Discharge Disposition: Discharge to home or self care 02/08/2025 4:30 PM CDT Office Visit [facility] at [address] [address] Heather Garcia NP Sore throat (Primary Dx) from Last 3 Months Allergies No known active allergies Medications cyclobenzaprine [...] with 30 ml of Mylanta 100 mL Active Active Problems No known active problems Immunizations Immunization Administration Dates Next Due MMR 09/05/2019(Deferred: Contraindic ation) Tdap 09/03/2019 Social History Tobacco Use Types Packs/Day Years [...] on file Legal Sex Female 7:14 PM CUTTING PRESSMAN Gender Identity Not on file Sexual Orientation Not on file Last Filed Vital Signs Vital Sign Reading [...] 165.1 cm (5' 5) 11/22/2019 1:04 PM CUTTING PRESSMAN Body Mass Index 32.28 11/22/2019 1:04 PM CUTTING PRESSMAN Plan of Treatment Not on file Procedures Procedure Name Priority Date/Time Associated Diagnosis Comments THROAT CULTURE Routine 02/08/2025 5:28 PM CDT Sore throat POC INFLUENZA A/B, COVID-19 ANTIGEN Routine 02/08/2025 5:07 PM CDT Sore throat POCT RAPID STREP Routine 02/08/2025 5:07 PM CDT Sore throat from Last 3 Months Results * Throat culture Throat (02/08/2025 5:28 PM CDT) Report Final Report: No growth of pathogens. Comment:Testing performed by : [facility], [address] [facility], [place]., [address] Throat 02/08/2025 5:28 PM CDT 02/09/2025 5:58 AM CDT Narrative [facility] - 02/10/2025 4:14 AM CDT Testing performed by [facility] Microbiology Laboratory ([phone]). Heather Garcia COMMUNICATIONS TOWER TECHNICIAN LAB MICROBIOLOGY - GENERAL ORDERABLES Final Result [facility] [id number] [place] [address] * POC Influenza A/B, COVID-19 antigen (02/08/2025 5:07 PM CDT) Influenza A Ag, POC Negative Negative [facility] Influenza B Ag, POC Negative Negative [facility] COVID-19 Ag POC Presumptive Negative Presumptive Negative, Invalid [facility] Nasal 02/08/2025 5:07 PM CDT Heather Garcia COMMUNICATIONS TOWER TECHNICIAN POINT OF CARE TEST ORDERAB LES Final Result Performing Organization Address City/[facility]/ZIP Co de Phone Number [facility] [address] [place] [address] * POCT rapid strep A (02/08/2025 5:07 PM CDT) Rapid Strep A, POC Negative Negative Swab 02/08/2025 5:07 PM CDT Heather Garcia COMMUNICATIONS TOWER TECHNICIAN POINT OF CARE TEST ORDERAB LES Final Result from Last 3 Months Insurance [facility] Advance Directives For more information, please contact: [phone] * Full Code (Latest Code Status on File) Date Activated Date Inactivated Comments 09/03/2019 6:40 PM 09/05/2019 7:53 PM * Full Code Date Activated Date Inactivated Comments 09/03/2019 11:42 AM 09/03/2019 6:40 PM Full CPR in case of cardiopulmonary arrest Care Teams Assistant Buyer Relationship Specialty Start Date End Date Radha Vallejo NP [address] [facility] [address] [address] PCP - General Nurse Practitioner 02/08/25
--- OUTSIDE RECORDS SUMMARY | 2025-02-19 13:38 | XMS_ITS | Encounter Summary ---
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 documented in this encounter Plan of Treatment Not on file documented as of this encounter Visit Diagnoses Not on filedocumented in this encounter Care Teams Premix Operator Concentrate Relationship Specialty Start Date End Date Radha Vallejo NP 2 [facility] [address] [address] PCP - General Nurse Practitioner 02/08/25 documented as of this encounter
--- OUTSIDE RECORDS SUMMARY | 2025-02-19 13:38 | XMS_ITS | Encounter Summary ---
Author Organization [facility] Address [address] [place] [address] Phone Care Team Providers Care Finishing Machine Operator Name Role Phone Cl Edmond MD Unavailable Radha Vallejo APRN, CNP Primary Care Provid er Encounter Details Date Type Department Care Team (Late st Contact Info) Description 02/18/2025 Results Follow-Up [facility] - [facility] Medicine - [place] [address] [place] [address] Radha Vallejo APRN, CNP [address] [address] CMP (COMPREHENSIVE METABOLIC PANEL), THYROID STIMULATING HORMONE (TSH), VITAMIN B12, Additional followed-up results: 3 Social History Tobacco Use Types Packs/Day Years Used Date Smoking Tobacco: Never Smokeless Tobacco: Never Alcohol Use Standard Drinks/Week Comments Yes 6 (1 standard drink = 0.6 oz pur e alcohol) [facility] Utilities Answer Date Recorded In the past [...] week 04/10/2024 How often do you attend judaism or judaism serv ices? Never 04/10/2024 Do you belong to any clubs o r organizations such as judaism groups, unions, fraternal or athletic groups, or [...] Total Score - Questions 1-9 20 01/22 [facility] - Occupational Stress Questionnaire Answer Date Recorded [...] any time in the past 12 [facility], were you homeless or living in a [...] as of this encounter Progress Notes * Radha Vallejo APRN, CNP - 02/18/2025 5:03 PM CDT Please call lab and add FT4 and FT3 documented in this encounter Plan of Treatment Not on file documented as of this encounter Visit Diagnoses Not on filedocumented in this encounter Additional Health Concerns Assessment Noted Time PHQ-9 Depression Total Score: 20 025 7:54 AM CDT documented as of this encounter Care Teams Finishing Machine Operator Relationship Specialty Start Date End Date Radha Vallejo APRN, CNP #2 [facility] [address] [place] [address] PCP - General Advanced Practice Nurse 04/10/24 Cl Edmond MD #2 [facility] [address] [place] [address] Consulting Physician General Surgery 10/23/21 documented as of this encounter
--- OUTSIDE RECORDS SUMMARY | 2025-02-19 13:38 | XMS_ITS | Clinical Summary ---
Author Organization [facility] [place] [address] [place] [address] Phone Care Team Providers Care Club Room Attendant Name Role Phone Unavailable Primary Care Provider Unavailabl e Immunizations Immunization Administration Dates Next Due Influenza Seasonal Unspecified Formulation IM Social History Tobacco Use Types Packs/Day Years Used Date Smoking Tobacco: Never Assessed Comments Unknown Sex and Gender Information Value Date Recorded Sex Assigned at Not on file Legal Sex Female 8:16 AM [employer]TER [employer] M[employer]ER Gender Identity Not on file Sexual Orientation Not on file Plan of Treatment Health Maintenance Due Date Last Done Comments HPV VACCINES (3 - 3-dose series) 04/20/2010 01/27/20, 01/31/2009 HEPATITIS B VACCINES (1 of 3 - 19+ 3-dose series) 2012 HPV/Cotest (21-29) 2014 CERVICAL CANCER SCREENING 2023 HPV/Cotest (30-65) 2023 PAP SMEAR 2023 INFLUENZA VACCINE (#1) 2024 2, 07/01/2019, 06/22/2016, Additional history exists DTAP/TDAP/TD VACCINES (7 - T d or Tdap) 09/03/2029 09/03/2019, 09/03/2018, 09/05/2014, Additional history exists Insurance [employer] [place]
--- OUTSIDE RECORDS SUMMARY | 2025-02-19 13:38 | XMS_ITS | Clinical Summary ---
Author Organization [facility] Address [address] [place] [address] Phone Care Team Providers Care Marketing Database Analyst Name Role Phone Cl Edmond MD Unavailable Radha Vallejo APRN, MATERIAL CONTROLLER Primary Care Provid er Allergies Active Allergy Reactions Criticality Noted Date Comments Pollen Extract Itching,Runny Nose,Shortness of Breath 01/10/2023 Medications medroxyPROGESTE Max (DEPO-PROVERA) 150 MG/ML Suspension DIRECTED 3 Active valACYclovir (VALTREX) 1 GM Tablet 4 Active Vit-Fe Fumarate-FA ( VITAMIN PO) Take 1 Tablet by mouth daily. Active buPROPion (WELLBUTRIN) 150 MG XL tabletIndicatio ns:Attention deficit,Anxiety Take 1 Tablet by mouth every morning. 90 Tablet 5 Active ergocalciferol (VITAMIN D) 53428 UNIT Capsule Take 1 Capsule by mouth every 7 days for 12 doses. 4 Capsule 2 5 05/07/20 25 Active escitalopram (LEXAPRO) 10 MG TabletIndicatio ns:Anxiety and depression Take 1 Tablet by mouth daily. 90 Tablet 4 02/19/20 25 Discontinu ed(Med List Clean Up) Active Problems Problem Noted Date Diagnosed Date Vitamin D deficiency 04/13/2024 Anxiety and depression 04/13/2024 Visit for annual health examination (Adult) 03/25 Resolved Problems Problem Noted Date Diagnosed Date Resolved Date Tinea versicolor 04/21/2019 01/10/2023 20 weeks gestation of 04/21/2019 01/10/2023 Encounters Date Type Department Care Team Description 02/18/2025 8:30 AM CDT Lab [facility]2 [facility] [address] [place] [address] Lab, [place] [facility]/Ancillary Weight gain; Vitamin D deficiency Discharge Disposition: Discharged to home or Selfcare 02/18/2025 7:45 AM CDT Office Visit [facility]2 [facility] [address] Radha Vallejo APRN, JODI Attention deficit (Primary Dx); Anxiety; Vitamin D deficiency; Weight gain; Elevated TSH Discharge Disposition: Discharged to home or Selfcare 02/18/2025 Results Follow-Up [facility]2 [facility] [address] Radha Vallejo APRN, JODI CMP (COMPREHENSIVE METABOLIC PANEL), THYROID STIMULATING HORMONE (TSH), VITAMIN B12, Additional followed-up results: 3 02/17/2025 Travel from Last 3 Months Immunizations Immunization Administration Dates Next Due DTP Vaccine 03/05/1994,01/05/1994,1993 H1N1 Flu, Unspecified Formulation 09/30/2009 Hepatitis A Vaccine 03/31/2013 Hepatitis B Vaccine,unspecif ied Formulation 06/04/2005,1993,1993 Human Papillomavirus Vaccine (HPV), quadrivalent 01/26/2010,01/31/2009 Influenza Vaccine 08/15/2015 Influenza Vaccine greater than 3 yrs 06/22/2016 Influenza Vaccine, MDCK,quad rivalent, pres free 06/21/2023 Influenza Vaccine, Quadrivalent, PF 07/01/2019 Influenza, Seasonal, Injecta ble, Undefined 08/21/2022,06/22/2016 MMR Vaccine 12/10/2008,08/31/2008 Meningococcal Vaccine 01/14/2009 Polio Vaccine,unspecified Formulation ,06/04/2005,06/07/1994,11/09 TD VACCINE 08/31/2008,06/04/2005 TDAP Vaccine 09/03/2019,09/03/2018,09/05/2014 Varicella Vaccine Live 08/30/2005,06/04/2005 Family History Medical History Relation Name Comments Seizures Mother Relation Name Status Comments Father Alive Mother Alive Sister Alive Social History Tobacco Use Types Packs/Day Years Used Date Smoking Tobacco: Never Smokeless Tobacco: Never Tobacco Cessation:Counseling Given: No Alcohol Use Standard Drinks/Week Comments Yes 6 (1 standard drink = 0.6 oz pur e alcohol) [facility] Utilities Answer Date Recorded In the past 12 months has th e electric, gas, oil, or water company [...] week 04/10/2024 How often do you attend zoroastrian or gnosticism serv ices? Never 04/10/2024 Do you belong to any clubs o r organizations such as zoroastrian groups, unions, fraternal or athletic groups, or [...] Total Score - Questions 1-9 20 01/22 [facility] - Occupational Stress Questionnaire Answer Date [...] any time in the past 12 m [facility], were you homeless or living in a care home (including now)? No 04/10/2024 Education Answer Date [...] Orientation Straight 02/04/2024 2: 10 PM CDT Last Filed Vital Signs Vital Sign Reading [...] Mass Index 32.62 02/18/2025 7:46 AM CDT Plan of Treatment Health Maintenance Due Date Last Done Comments Human Papillomavirus (HPV) Immunization (3 - 3-dose series) 04/20/2010 01/26/2010, 01/31/2009 Pap Smear 05/08/2026 05/08/2023, 03/24, 03/31/2021, Additional history exists Cervical Cancer Screening (CCS) 05/08/2028 HPV/Cotest 05/08/2028 05/08/2023 DTaP/Tdap/Td Immunization (8 - Td or Tdap) 09/03/2029 09/03/2019, 09/03/2018, 09/05/2014, Additional history exists Td Immunization Every 10 Years (Adults With 1 Tdap) 09/03/2029 09/03/2019, 09/03/2018, 09/05/2014, Additional history exists Respiratory Syncytial Virus (RSV) Immunization (Adult) (1 - 1-dose 75+ series) 2068 Hepatitis B Immunization Completed 005, 1993, 1993 Meningococcal Immunization (ACWY) Aged Out 01/14/2009 No longer eligible based on patient's age to complete this topic SARS-COV-2 Immunization Discontinued 09/25/2022 Hepatitis C Virus (HCV) Screening Completed 04/10/2024 Influenza Immunization Completed , 06/21/2023, 08/21/2022, Additional history exists Pneumococcal Immunization Combined Aged Out No longer eligible based on patient's age to complete this topic Rotavirus Immunization Aged Out No lo nger eligible based on patient's age to complete this topic Procedures Procedure Name Priority Date/Time Associated Diagnosis Comments CBC WITH AUTO DIFFERENTIAL Routine 02/18/2025 8:21 AM CDT Weight gain IRON,TRANSFERN,CALC.T IBC,%SAT Routine 02/18/2025 8:21 AM CDT Weight gain VITAMIN D, 25 HYDROXY TOTAL Routine 02/18/2025 8:21 AM CDT Vitamin D deficiency VITAMIN B12 Routine 02/18/2025 8:21 AM CDT Weight gain THYROID STIMULATING HORMONE (TSH) Routine 02/18/2025 8:21 AM CDT Weight gain COMPLETE BLOOD COUNT (CBC) WITH DIFF Routine 02/18/2025 8:21 AM CDT Weight gain CMP (COMPREHENSIVE METABOLIC PANEL) Routine 02/18/2025 8:21 AM CDT Weight gain SARS-COV-2 BY MOLECULAR 12/06/2024 12:00 AM CDT INFLUENZA TEST 12/06/2024 12:00 AM CDT HEPATITIS C ANTIBODY Routine 04/10/2024 10:24 AM CDT Need for hepatitis C screening test HUMAN PAPILLOMA VIRUS (HPV) 05/08/2023 12:00 AM CDT PATHOLOGY CYTOLOGY TOP HAT BODY MAKER 05/08/2023 12:00 AM CDT from Last 3 Months or Most Recently Relevant to Health Maintenance Results * VITAMIN D, 25 HYDROXY TOTAL (02/18/2025 8:21 AM CDT) VITAMIN D, 25 HYDROX 13.1 ng/mL 02/18/2025 1:34 PM CDT [facility] Blood Venipuncture / Unknown 02/18/2025 8:21 AM CDT 02/18/2025 8:21 AM CDT Narrative [facility] - 02/18/2025 1:34 PM CDT Published reference ranges for Vitamin D vary depending on time and place and method of testing, and on patient's age, sex, ethnicity and levels of other measured analytes such as parathormone, calcium and phosphorus. The result should be evaluated in conjunction with clinical findings and suspicions. [place] [employer] and Endocrine Clinical Practice Guidelines: Status Vitamin D levels (ng/mL) Deficient <=20 At risk of inadequacy 21-29 Sufficient 30-100 Centers of Disease Control and Prevention Guidelines: Status Vitamin D levels (ng/mL) Deficient <13 At risk of inadequacy 13-19 Sufficient 20-50 Possibly harmful >50 References: [place] [employer], 2010 Dietary reference intakes for calcium and vitamin D. [place]: The National Academies Press. Gordo M, Mitzy N, Barrett BAEZ, et al., Evaluation, treatment, and prevention of Vitamin D deficiency: an Endocrinology Clinical Practice Guideline. JCEM 2011 96: 7 9955-4401. Karla A, Saravanan C, Ifrah D, et al., Vitamin D Status: [place], 6961-3956, [facility] data brief, no. 59, [place]: National Center for Health Statistics. 2011. us Radha Vallejo MAGISTRATE, MATERIAL CONTROLLER CHEMISTRY ORDERABLES Final Result [facility] [place] [address] * IRON,TRANSFERN,CALC.TIBC,%SAT (02/18/2025 8:21 AM CDT) IRON 89 25 - 156 mcg/dL 02/18/2025 1:11 PM CDT [facility] TRANSFERRIN 267 180 - 382 mg/dL 02/18/2025 1:11 PM CDT [facility] TIBC, CALCULATED 334 265 - 497 mcg/dL 02/18/2025 1:11 PM CDT [facility] % SATURATION * 27 15 - 62 % 02/18/2025 1:11 PM CDT [facility] Blood Venipuncture / Unknown 02/18/2025 8:21 AM CDT 02/18/2025 8:21 AM CDT us Radha Vallejo MAGISTRATE, JODI CHEMISTRY ORDERABLES Final Result [facility] [place] [address] * (ABNORMAL) CBC WITH AUTO DIFFERENTIAL (02/18/2025 8:21 AM CDT) WBC 8.91 4.00 - 12.00 10(3)/mcL 02/18/2025 12:14 PM CDT [facility] RBC 4.73 3.80 - 5.30 10(6)/mcL 02/18/2025 12:14 PM CDT [facility] HEMOGLOBIN (HGB) 14.9 12.0 - 15.8 g/dL 02/18/2025 12:14 PM CDT [facility] HEMATOCRIT (HCT) 45.6 36.0 - 47.0 % 02/18/2025 12:14 PM CDT [facility] MCV 96.4(H) 82.0 - 96.0 fL 02/18/2025 12:14 PM CDT [facility] MCH 31.5 26.0 - 34.0 pg 02/18/2025 12:14 PM CDT [facility] MCHC 32.7 31.0 - 36.0 g/dL 02/18/2025 12:14 PM CDT [facility] PLATELET COUNT 444(H) 140 - 440 10(3)/mcL 02/18/2025 12:14 PM CDT [facility] RDW 13.3 11.8 - 15.5 % 02/18/2025 12:14 PM CDT [facility] MPV 9.8 9.7 - 12.4 fL 02/18/2025 12:14 PM CDT [facility] NEUTROPHILS 49.8 47.0 - 73.0 % 02/18/2025 12:14 PM CDT [facility] LYMPHOCYTES 37.8 18.0 - 42.0 % 02/18/2025 12:14 PM CDT [facility] MONOCYTES 6.4 4.0 - 12.0 % 02/18/2025 12:14 PM CDT [facility] EOSINOPHILS 5.2(H) 0.0 - 5.0 % 02/18/2025 12:14 PM CDT [facility] BASOPHILS 0.8 0.0 - 1.0 % 02/18/2025 12:14 PM CDT [facility] ABSOLUTE NEUTROPHILS 4.44 1.60 - 7.70 10(3)/[facility] 02/18/2025 12:14 PM CDT [facility] ABSOLUTE LYMPHOCYTES 3.37(H) 1.30 - 3.20 10(3)/[facility] 02/18/2025 12:14 PM CDT [facility] ABSOLUTE MONOCYTES 0.57 0.20 - 1.00 10(3)/[facility] 02/18/2025 12:14 PM CDT [facility] ABSOLUTE EOSINOPHIL 0.46(H) 0.00 - 0.40 10(3)/[facility] 02/18/2025 12:14 PM CDT [facility] ABSOLUTE BASOPHILS 0.07 0.00 - 0.10 10(3)/[facility] 02/18/2025 12:14 PM CDT [facility] NRBC PER 100 WBC 0 02/19/20 25 12:14 PM CDT [facility] Blood Venipuncture / Unknown 02/18/2025 8:21 AM CDT 02/18/2025 8:21 AM CDT us Radha Vallejo MAGISTRATE, MATERIAL CONTROLLER HEMATOLOGY ORDERABLE S Final Result [facility] [place] [address] * VITAMIN B12 (02/18/2025 8:21 AM CDT) Pathologist [facility] VITAMIN B12 762 213 - 816 pg/mL 02/18/2025 1:34 PM CDT [facility] Blood Venipuncture / Unknown 02/18/2025 8:21 AM CDT 02/18/2025 8:21 AM CDT Radha Vallejo MAGISTRATE, MATERIAL CONTROLLER CHEMISTRY ORDERABLES Final Result Performing Organization Address City/[facility]/ZIP Co de Phone Number [facility] [place] [address] * (ABNORMAL) THYROID STIMULATING HORMONE (TSH) (02/18/2025 8:21 AM CDT) TSH 11.475(H) 0.300 - 5.000 mIU/L 02/18/2025 1:36 PM CDT [facility] Blood Venipuncture / Unknown 02/18/2025 8:21 AM CDT 02/18/2025 8:21 AM CDT Radha Vallejo APRN, MATERIAL CONTROLLER CHEMISTRY ORDERABLES Final Result Performing Organization Address City/[facility] de Phone Number [facility] [place] [address] * (ABNORMAL) CMP (COMPREHENSIVE METABOLIC PANEL) (02/18/2025 8:21 AM CDT) SODIUM 139 136 - 145 mmol/L 02/18/2025 1:11 PM CDT [facility] POTASSIUM 4.1 3.5 - 5.1 mmol/L 02/18/2025 1:11 PM CDT [facility] CHLORIDE 108(H) 98 - 107 mmol/L 02/18/2025 1:11 PM CDT [facility] CO2, VENOUS 25 22 - 30 mmol/L 02/18/2025 1:11 PM CDT [facility] ANION GAP 10.1 <18.0 mmol/L 02/18/2025 1:11 PM CDT [facility] GLUCOSE 88 70 - 99 mg/dL 02/18/2025 1:11 PM CDT [facility] BUN 12 5 - 18 mg/dL 02/18/2025 1:11 PM T [facility] CREATININE, BLOOD 1.32(H) 0.60 - 1.00 mg/dL 02/18/2025 1:11 PM T [facility] BUN/CREATININE RATIO 9(L) 12 - 20 ratio 02/18/2025 1:11 PM CDT [facility] TOTAL PROTEIN 6.6 6.0 - 8.0 g/dL 02/18/2025 1:11 PM T [facility] ALBUMIN 3.7 3.5 - 5.0 g/dL 02/18/2025 1:11 PM [facility] A/G RATIO 1.3 1.0 - 2.2 02/18/2025 1:11 PM [facility] CALCIUM 8.8 8.7 - 10.5 mg/dL 02/18/2025 1:11 PM [facility] T BILI 0.4 0.2 - 1.2 mg/dL 02/18/2025 1:11 PM [facility] SGOT (AST) 29 <43 U/L 02/18/2025 1:11 PM [facility] SGPT (ALT) 26 <56 U/L 02/18/2025 1:11 PM [facility] ALKALINE PHOSPHATASE 72 40 - 150 U/L 02/18/2025 1:11 PM [facility] IS THE PATIENT REQUIRED TO BE FASTING? No 02/18/2025 1:11 PM T [facility] GFR, ESTIMATED 55(L) >=60 02/18/2025 1:11 PM [facility] Comment: Creatinine Clearance is the preferred criteria for selecting drug dose adjustments in renally impaired patients. The GFR is provided as additional pertinent clinical information. GFR is reported in mL/min/1.73 sq m. Calculation based on the Chronic Kidney Disease Epidemiology Collaboration (CKD- EPI) equation refit without adjustment for race. GFR, EST. 57(L) >=60 025 1:11 PM CDT [facility] GFR, EST. NONAFRICAN 47(L) >=60 02/18/2025 1:11 PM CDT [facility] Blood Venipuncture / Unknown 02/18/2025 8:21 AM CDT 02/18/2025 8:21 AM CDT Radha Vallejo MAGISTRATE, JODI CHEMISTRY ORDERABLES Final Result Performing Organization Address City/[facility] Co de Phone Number [facility] [place] [address] * INFLUENZA TEST (12/06/2024 12:00 AM CDT) 12/06/2024 us Provider Scan MICROBIOLOGY - GENERAL ORDERABLE S Final Result Performing Organization Address City/[facility]/ZIP Co de Phone Number SCAN * SARS-COV-2 BY MOLECULAR (12/06/2024 12:00 AM CDT) 12/06/2024 us Provider Scan MICROBIOLOGY - GENERAL ORDERABLE S Final Result Performing Organization Address City/[facility] de Phone Number SCAN * HEPATITIS C ANTIBODY (04/10/2024 10:24 AM CDT) hepatitis C antibody 0.20 <1 S/CO 04/10/2024 10:35 PM CDT [facility] Comment: Signal/Cutoff ratio < 0.79 is Nondetected Signal/Cutoff ratio 0.80-0.99 is Grayzone Signal/Cutoff ratio > 0.99 is Detected Supplemental assays are recommended if signal/cutoff ratio is >/=1.00. Signal/cutoff ratio result >/= 5.00 is 97% predictive of positivity for recombinant immunoblot assay (RIBA) and will be reported to the [place] Department of Public Health as required. Blood Venipuncture / Unknown 04/10/2024 10:24 AM CDT 04/10/2024 10:24 AM CDT Radha Vallejo APRN, CNP CHEMISTRY ORDERABLES Final Result [facility] [address] [place] [address], [place] * PATHOLOGY CYTOLOGY TOP HAT BODY MAKER (05/08/2023 12:00 AM CDT) 05/08/2023 us Provider Scan PATHOLOGY/CYTOLOGY ORDERABLES Fi nal Result SCAN * HUMAN PAPILLOMA VIRUS (HPV) (05/08/2023 12:00 AM CDT) 05/08/2023 Provider Scan LAB SEND OUTS Final Result SCAN from Last 3 Months or Most Recently Relevant to Health Maintenance Insurance [address] [place] [address] MEDICAID [place] Care Teams Marketing Database Analyst Relationship Specialty Start Date End Date Radha Vallejo APRN, CNP [address] [phone] PCP - General Advanced Practice Nurse 04/10/24 Cl Edmond MD #[address] [facility] [address] [place] [phone] Consulting Physician General Surgery 10/23/21
[2025-02-19 17:48] LABS: Free T3 2.71 pg/mL (2.32-6.09); Free T4 Free Thyroxine 0.71 ng/dL (0.78-2.19)
== END 2025-02-19 13:36 | disposition home or self-care (01) ==
LOC: ANHLAB 13:36
PROVIDERS: PCP Nurse Practitioner; Visit Provider Nurse Practitioner
DX: R79.89 Other specified abnormal findings of blood chemistry (principal)
CPT/HCPCS: 36415; 84439; 84481

== ENCOUNTER 2025-08-09 08:42 | Outpatient (CLI) | payer OTHER, SELFPAY ==
[2025-08-09 09:15] LABS: Hematocrit 42.2 % (37.0-47.0); Hemoglobin 14.1 g/dL (12.0-15.0); Immature Granulocyte Percent A 0.2 % (0-0.5); Lymphocytes Absolute Auto 2.81 K/mm3 (0.9-3.2); Mean Corpuscular HGB Conc 33.4 g/dl (32-36); Mean Corpuscular Hemoglobin 32.0 pg (26-34); Mean Corpuscular Volume 95.7 fl (80-100); Nucleated Red Blood Cells Absolute Auto 0.000 K/mm3 (0.0-0.012); Nucleated Red Blood Cells Perc 0.0 % (0.0-0.2); Platelet Count Result 402 k/mm3 (150-375); Red Blood Count 4.41 M/mm3 (4.2-5.4); White Blood Count 6.6 K/mm3 (4.5-10.0)
[2025-08-09 12:09] LABS: Alanine Aminotransferase 46 U/L (6-35); Albumin Level 4.3 g/dL (3.5-5.1); Alkaline Phosphatase 100 U/L (38-126); Anion Gap 8 mmol/L (4-12); Aspartate Amino Transferase 38 U/L (14-36); Bilirubin,Total 0.5 mg/dL (0.2-1.3); Blood Urea Nitrogen 16 mg/dL (7-17); Calcium 9.4 mg/dL (8.4-10.2); Carbon Dioxide 25 mmol/L (22-30); Chloride 106 mmol/L (98-107); Cholesterol 149 mg/dL (0-200); Estimated Glomerular Filt Rate 48; Glucose 88 mg/dL (65-110); HDL Direct 47 mg/dL; Potassium 4.7 mmol/L (3.4-5.0); Sodium 139 mmol/L (137-145); Total Protein 7.7 g/dL (6.3-8.2); Triglycerides 48 mg/dL (<150)
[2025-08-09 12:24] LABS: Free T3 3.89 pg/mL (2.32-6.09); Free T4 Free Thyroxine 0.90 ng/dL (0.78-2.19)
[2025-08-09 12:44] LABS: Thyroid Stimulating Hormone 2.620 uIU/mL (0.465-4.680)
== END 2025-08-09 08:43 | disposition home or self-care (01) ==
LOC: ANHLAB 08:44
PROVIDERS: PCP Nurse Practitioner; Visit Provider Nurse Practitioner
DX: Z00.00 Encounter for general adult medical examination without abnormal findings (principal); E03.8 Other specified hypothyroidism; E55.9 Vitamin D deficiency, unspecified
CPT/HCPCS: 36415; 80053; 80061; 82306; 84439; 84443; 84481; 85025; 86376